=== PATIENT | female | born 1975 | race Caucasian/White ===

== ENCOUNTER 2020-03-18 13:43 | Emergency (ER) | payer BC ==
--- NOTE | 2020-03-18 14:50 | XRAY Report ---
PROCEDURE: Wrist 3 View RT INDICATIONS: trauma/fall TECHNIQUE: 3 views of the wrist were acquired. COMPARISON: None. FINDINGS: Bones: No fractures or dislocations. No suspicious bony lesions. Soft tissues: No suspicious soft tissue calcifications. IMPRESSION: Right wrist without acute fracture or dislocation. If there is persistent clinical concern for a radiographically occult fracture, recommend immobilizat ion and repeat imaging in 10 to 14 days. Reviewed by: Jose Machado MD on 03/18/2020 1:[address] [facility] Approved by: Jose Machado MD on 03/18/2020 1:[address] [facility] Station ID: [id number]
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
[2020-03-18 15:39] VITALS: BP 137/73
== END 2020-03-18 15:46 | disposition home or self-care (01) ==
LOC: ED 13:43
DX: S63.501A Unspecified sprain of right wrist, initial encounter (principal); Y04.2XXA Assault by strike against or bumped into by another person, initial encounter; Y92.000 Kitchen of unspecified non-institutional (private) residence as the place of occurrence of the external cause; T74.11XA Adult physical abuse, confirmed, initial encounter; Y07.01 Husband, perpetrator of maltreatment and neglect
CPT/HCPCS: 29125; 99283

== ENCOUNTER 2020-03-20 08:00 | Outpatient (CLI) | payer BC ==
[2020-03-20 18:35] LABS: BASOPHILS % (AUTO) 0.6 %; EOSINOPHILS % (AUTO) 0.3 %; HGB - HEMOGLOBIN 12.6 g/dL (12.0-16.0); LYMPHOCYTES # (AUTO) 1.8 10^3/uL (1.5-3.5); LYMPHOCYTES % (AUTO) 27.6 %; MEAN CORPUSCULAR HEMOGLOBIN 30.4 pg (27.0-31.0); MEAN CORPUSCULAR HGB CONC 32.3 g/dL (32.0-36.0); MEAN CORPUSCULAR VOLUME 94.2 fL (81.0-99.0); MEAN PLATELET VOLUME 9.7 fL (7.9-10.8); MONOCYTES # (AUTO) 0.5 10^3/uL (0.0-1.0); MONOCYTES % (AUTO) 8.2 %; NEUTROPHILS # (AUTO) 4.2 10^3/uL (1.5-6.6); PLT - PLATELET COUNT 336 10^3/uL (130-450); RED BLOOD COUNT 4.14 10^6/uL (4.20-5.40); RED CELL DISTRIBUTION WIDTH 13.1 % (12.0-15.0); WHITE BLOOD COUNT 6.6 x10^3/uL (4.8-10.8)
[2020-03-20 19:05] LABS: % IRON SATURATION 12 % (20-50); ALBUMIN 4.1 g/dL (3.2-5.5); ALBUMIN/GLOBULIN RATIO 1.4 (1.0-2.2); ALKALINE PHOSPHATASE 47 IU/L (42-121); ALT ALANINE AMINOTRANSFERASE 24 IU/L (10-60); AST ASPARTATE AMINOTRANSFERASE 20 IU/L (10-42); BILIRUBIN,TOTAL 0.7 mg/dL (0.2-1.0); BUN - BLOOD UREA NITROGEN 13 mg/dL (6-20); CALCIUM 9.2 mg/dL (8.5-10.3); CARBON DIOXIDE - CO2 23 mmol/L (21-32); CHLORIDE 107 mmol/L (101-111); CHOL/HDL RATIO 3.2 (<4.4); CHOLESTEROL 175 mg/dL; CREATININE 0.7 mg/dL (0.4-1.0); GLUCOSE 99 mg/dL (70-100); HDL CHOLESTEROL 54 mg/dL; IRON 49 ug/dL (28-170); LDL CHOLESTEROL,CALCULATED 112 mg/dL; LDL/HDL RATIO 2.1 (<4.4); SODIUM 138 mmol/L (135-145); TOTAL IRON BINDING CAPACITY 399 ug/dL (250-450); TOTAL PROTEIN 7.1 g/dL (6.7-8.2); TRANSFERRIN 285 mg/dL (192-382); VLDL CHOLESTEROL 9 mg/dL
[2020-03-20 19:14] LABS: FERRITIN 16.6 ng/mL (11.0-306.8)
== END 2020-03-20 23:59 | disposition home or self-care (01) ==
LOC: LAB.WCP 08:00
PROVIDERS: ATTEND Physician Assistant Medical
DX: Z00.00 Encounter for general adult medical examination without abnormal findings (principal); D64.9 Anemia, unspecified; J30.9 Allergic rhinitis, unspecified; L25.9 Unspecified contact dermatitis, unspecified cause; Z77.118 Contact with and (suspected) exposure to other environmental pollution
CPT/HCPCS: 36415; 80053; 80061; 82607; 82728; 83540; 83721; 84443; 84466; 85025

== ENCOUNTER 2020-11-03 04:51 | Outpatient (CLI) | payer OTHER | END 2020-11-03 04:52 | disposition home or self-care (01) | LOC: LAB 04:51 | PROVIDERS: ATTEND Pathology Blood Banking & Transfusion Medicine | DX: Z01.89 Encounter for other specified special examinations (principal) | CPT/HCPCS: 36415 ==

== ENCOUNTER 2020-12-08 15:04 | Emergency (ER) | payer BC ==
--- NOTE | 2020-12-08 15:39 | ED Physician Documentation ---
PD HPI UPPER EXT INJURY - Stated complaint Stated Complaint: RIGHT SHOULDER & ARM PX - Chief complaint Chief Complaint: Ext Problem - History obtained from History obtained from: Patient - Additonal information Additional information: This is a 45-year-old woman who is a vague and potentially slightly manic historian who presents with a chief complaint of right shoulder pain. She states she injured it 23 years ago but will not tell me how. It was reinjured 9 months ago. And "multiple reinjuries since then." She would like her shoulder checked out today. She would like an x-ray. 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 - Allergies Allergies/Adverse Reactions: Allergies Allergy/AdvReac Type Severity Reaction Status Date / Time amoxicillin Allergy Unknown Verified 12/08/20 15:10 pain meds AdvReac Unknown Uncoded 12/08/20 15:10 - Social History Does the pt smoke?: No Smoking Status: Never smoker Does the pt drink ETOH?: Yes Does the pt have substance abuse?: No - Immunizations Immunizations are current?: Yes - POLST Patient has POLST: No PD ED PE NORMAL - Vitals Vital signs reviewed: Yes - General General: No acute distress, Well developed/nourished, Other (Poor eye contact, pressured voice almost to the point of belligerence.) - Extremities Extremities: Other (Right shoulder is nontender, no rash, no limited range of motion.) Results - Vitals Vitals: Vital Signs - 24 hr 12/08/20 12/08/20 15:10 16:35 Temperature 36.5 C 36.6 C Heart Rate 84 62 Respiratory 16 16 Rate Blood Pressure 132/81 H 127/83 H O2 Saturation 98 100 Oxygen O2 Source Room air - Rads (name of study) Three-view right shoulder x-ray Radiology: EMP read contemporaneously (NAD, calcific tendinitis and DJD) Departure - Departure Disposition: 01 Home, Self Care Clinical Impression: Arthritis of right shoulder region Condition: Good Record reviewed to determine appropriate education?: Yes Instructions: Arthritis Acromioclavicular Follow-Up: [facility] [Provider Group] Comments: Tylenol or ibuprofen as needed for pain. Return for new or worsening symptoms. Try to range the joint and use it as normally as you can. Follow-up with orthopedics, call tomorrow for an appointment. Discharge Date/Time: 12/08/20 16:52
[2020-12-08] MEDS: ACETAMINOPHEN 325 MG TABLET PO STA ×2 (16:00→16:03)
[2020-12-08 16:52] VITALS: BP 127/83
--- NOTE | 2020-12-08 18:22 | XRAY Report ---
PROCEDURE: Shoulder 3 View RT INDICATIONS: shoulder inj TECHNIQUE: 3 views of the shoulder were acquired. COMPARISON: None. FINDINGS: Bones: No fractures or dislocations. No suspicious bony lesions. Visualized ribs appear intact. D egenerative changes are seen, including mild subacromial spurring. Soft tissues: Calcific tendinopathy can be seen. The visualized lung demonstrates a normal appearance . IMPRESSION: No acute abnormality is seen. Degenerative changes are seen, with calcific tendinopathy. If it would be helpful for clinical management decision making, please consider a dedicated, schedule d shoulder MRI for further evaluation (assuming that there is no contraindication). Reviewed by: Yang Ram MD on 12/08/2020 5:21 PM [facility] Approved by: Yang Ram MD on 12/08/2020 5:21 PM [facility] Station ID: [id number]
== END 2020-12-08 16:52 | disposition home or self-care (01) ==
LOC: ED 15:04
DX: M19.011 Primary osteoarthritis, right shoulder (principal)
CPT/HCPCS: 99283

== ENCOUNTER 2020-12-17 19:58 | Emergency (ER) | payer BC ==
[2020-12-17 20:14] VITALS: BP 114/69
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
== END 2020-12-17 21:03 | disposition left against medical advice (07) ==
LOC: ED 19:58
DX: F99 Mental disorder, not otherwise specified (principal); F22 Delusional disorders; F43.10 Post-traumatic stress disorder, unspecified; Z53.29 Procedure and treatment not carried out because of patient's decision for other reasons
CPT/HCPCS: 80053; 80307; 80320; 80329; 83690; 84443; 85025; 99281; 99283

== ENCOUNTER 2021-01-05 15:28 | Outpatient (CLI) | payer BC | END 2021-01-05 15:29 | disposition EMS.NT | LOC: EMS 15:28 | DX: Z04.1 Encounter for examination and observation following transport accident (principal) ==

== ENCOUNTER 2021-05-02 21:07 | Outpatient (CLI) | payer BC | END 2021-05-02 21:08 | disposition EMS.NT | LOC: EMS 21:07 | DX: Z03.89 Encounter for observation for other suspected diseases and conditions ruled out (principal) ==

== ENCOUNTER 2021-05-31 15:46 | Emergency (ER) | payer BC ==
[2021-05-31 16:02] VITALS: BP 137/90
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
[2021-05-31 16:40] LABS: MUDS CUTOFF CONCENTRATIONS CUTOFF CONC BELOW:
[2021-05-31 16:45] LABS: BILIRUBIN,URINE NEGATIVE (NEGATIVE); GLUCOSE, URINE (UA) NEGATIVE (NEGATIVE); KETONES,URINE (UA) TRACE mg/dL (NEGATIVE); LEUKOCYTE ESTERASE, URINE NEGATIVE (NEGATIVE); NITRITE,URINE NEGATIVE (NEGATIVE); OCCULT BLOOD,URINE LARGE (NEGATIVE); PROTEIN,URINE NEGATIVE (NEGATIVE); UROBILINOGEN,URINE 0.2 (NORMAL) E.U./dL (NORMAL)
[2021-05-31 16:48] LABS: CLARITY,URINE HAZY (CLEAR); HCG UR QUAL NEGATIVE
[2021-05-31 16:54] LABS: BACTERIA,URINE Few /HPF (None Seen); SQUAMOUS EPITHELIAL CELL,UR MANY Squamous (<= Few); WBC,URINE 0-3 /HPF (0-5)
[2021-05-31 16:55] LABS: AMPHETAMINE SCREEN,URINE NEGATIVE (NEGATIVE); BENZODIAZEPINES SCREEN, URINE NEGATIVE (NEGATIVE); METHAMPHETAMINES SCREEN, URINE NEGATIVE (NEGATIVE); OPIATE SCREEN, URINE NEGATIVE (NEGATIVE); THC CANNABINOID SCREEN, URINE NEGATIVE (NEGATIVE)
[2021-05-31 16:56] LABS: BARBITURATE SCREEN,UR NEGATIVE (NEGATIVE); COCAINE SCREEN URINE NEGATIVE (NEGATIVE); METHADONE SCREEN, URINE NEGATIVE (NEGATIVE); OXYCODONE SCREEN, URINE NEGATIVE (NEGATIVE); PROPOXYPHENE SCREEN, URINE NEGATIVE (NEGATIVE); TRICYCLIC ANTIDEPRESSANT,URINE NEGATIVE (NEGATIVE)
[2021-05-31 16:59] LABS: BASOPHILS % (AUTO) 0.5 %; EOSINOPHILS % (AUTO) 0.3 %; HCT - HEMATOCRIT 36.5 % (37.0-47.0); HGB - HEMOGLOBIN 12.2 g/dL (12.0-16.0); LYMPHOCYTES # (AUTO) 1.8 10^3/uL (1.5-3.5); LYMPHOCYTES % (AUTO) 23.7 %; MEAN CORPUSCULAR HEMOGLOBIN 30.3 pg (27.0-31.0); MEAN CORPUSCULAR HGB CONC 33.4 g/dL (32.0-36.0); MEAN CORPUSCULAR VOLUME 90.6 fL (81.0-99.0); MONOCYTES # (AUTO) 0.7 10^3/uL (0.0-1.0); MONOCYTES % (AUTO) 9.7 %; NEUTROPHILS # (AUTO) 4.9 10^3/uL (1.5-6.6); NEUTROPHILS % (AUTO) 65.4 %; PLT - PLATELET COUNT 318 10^3/uL (130-450); RED BLOOD COUNT 4.03 10^6/uL (4.20-5.40); RED CELL DISTRIBUTION WIDTH 13.1 % (12.0-15.0); WHITE BLOOD COUNT 7.6 x10^3/uL (4.8-10.8)
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
[2021-05-31 17:18] LABS: ACETAMINOPHEN < 10 ug/mL (10-30); ALBUMIN 3.9 g/dL (3.2-5.5); ALBUMIN/GLOBULIN RATIO 1.4 (1.0-2.2); ALKALINE PHOSPHATASE 46 IU/L (42-121); ALT ALANINE AMINOTRANSFERASE 21 IU/L (10-60); AST ASPARTATE AMINOTRANSFERASE 23 IU/L (10-42); BILIRUBIN,TOTAL 0.7 mg/dL (0.2-1.0); BUN - BLOOD UREA NITROGEN 13 mg/dL (6-20); CARBON DIOXIDE - CO2 24 mmol/L (21-32); CHLORIDE 104 mmol/L (101-111); CREATININE 0.6 mg/dL (0.4-1.0); ETOH - ETHANOL < 5.0 mg/dL; GFR - MDRD 107 (>89); GLUCOSE 91 mg/dL (70-100); LIPASE 44 U/L (22-51); POTASSIUM 3.7 mmol/L (3.5-5.0); SALICYLATE < 6.0 mg/dL; SODIUM 137 mmol/L (135-145); TOTAL PROTEIN 6.7 g/dL (6.7-8.2)
[2021-05-31 17:32] LABS: CORONAVIRUS 229E-RESP PCR NOT DETECTED; CORONAVIRUS HKU1-RESP PCR NOT DETECTED; CORONAVIRUS NL63-RESP PCR NOT DETECTED; CORONAVIRUS OC43-RESP PCR NOT DETECTED; HUMAN METAPNEUMOVIRUS NOT DETECTED; RHINOVIRUS/ENTEROVIRUS NOT DETECTED; SARS-CoV-2 -RESP PCR PANEL NOT DETECTED
[2021-05-31 17:33] LABS: B. PARAPERTUSSIS- RESP PCR PAN NOT DETECTED; B. PERTUSSIS- RESP PCR PANEL NOT DETECTED; C. PNEUMONIAE- RESP PCR PANEL NOT DETECTED; INFLUENZA A- RESP PCR PANEL NOT DETECTED; INFLUENZA B - RESP PCR PANEL NOT DETECTED; M. PNEUMONIAE- RESP PCR PANEL NOT DETECTED; PARAINFLUENZA VIRUS 1 NOT DETECTED; PARAINFLUENZA VIRUS 2 NOT DETECTED; PARAINFLUENZA VIRUS 3 NOT DETECTED; PARAINFLUENZA VIRUS 4 NOT DETECTED; RSV- RESP PCR PANEL NOT DETECTED
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
== END 2021-05-31 17:46 | disposition home or self-care (01) ==
LOC: ED 15:46
DX: S50.11XA Contusion of right forearm, initial encounter (principal); Y04.8XXA Assault by other bodily force, initial encounter; Y92.512 Supermarket, store or market as the place of occurrence of the external cause; M75.31 Calcific tendinitis of right shoulder; R31.9 Hematuria, unspecified; R45.4 Irritability and anger; F41.9 Anxiety disorder, unspecified; Z20.822 Contact with and (suspected) exposure to COVID-19
CPT/HCPCS: 0202U; 36415; 73030; 80053; 80306; 80307; 80320; 80329; 81001; 81025; 83690; 84443; 85025; 99282; 99284; 81003; 87086

== ENCOUNTER 2021-07-01 08:32 | Emergency (ER) | payer BC ==
[2021-07-01 08:46] VITALS: BP 133/76
--- NOTE | 2021-07-01 09:04 | ED Physician Documentation ---
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 She states that it is a form that allows her to continue to drive. She states she does not know why the form was sent to her. She states that she does not have a primary care provider any longer as she was fired from her primary care provider's office and escorted out by security. She states that the state does not have the right to tell her if she can drive or not. She states that she is her own provider and makes her own decisions about whether she can drive or not. She has no complaints currently. She states that she just needs the form filled out. The form was due on June 22 2021. Review of Systems Ten Systems: 10 systems reviewed and negative Constitutional: denies: Fever, Chills Respiratory: denies: Cough GI: denies: Vomiting, Diarrhea Skin: denies: Rash Musculoskeletal: denies: Neck pain, Back pain Neurologic: denies: Headache PD PAST MEDICAL HISTORY - Past Medical History Past Medical History: Yes Cardiovascular: None Respiratory: Asthma Neuro: None Endocrine/Autoimmune: None GI: None SENIOR MOBILE SOLUTIONS ARCHITECT: None : None HEENT: None Psych: Anxiety, Post traumatic stress disorder Musculoskeletal: None Derm: None - Past Surgical History Past Surgical History: Yes Ortho: Other /SENIOR MOBILE SOLUTIONS ARCHITECT: Tubal ligation - Present Medications Home Medications: Ambulatory Orders Medication Instructions Recorded Confirmed No Known Home Medications 07/01/21 07/01/21 - Allergies Allergies/Adverse Reactions: Allergies Allergy/AdvReac Type Severity Reaction Status Date / Time amoxicillin Allergy Unknown Verified 07/01/21 08:39 pain meds AdvReac Unknown Uncoded 05/31/21 16:02 - Social History Does the pt smoke?: No Smoking Status: Former smoker Does the pt drink ETOH?: Yes Does the pt have substance abuse?: No - Immunizations Immunizations are current?: Yes - POLST Patient has POLST: No PD ED PE NORMAL - Vitals Vital signs reviewed: Yes - General General: Alert and oriented X 3, No acute distress - HEENT HEENT: Moist mucous membranes - Respiratory Respiratory: No respiratory distress - Derm Derm: Warm and dry - Neuro Neuro: Alert and oriented X 3 Results - Vitals Vitals: Vital Signs - 24 hr 07/01/21 08:42 Temperature 36.4 C L Heart Rate 80 Respiratory 16 Rate Blood Pressure 133/76 H O2 Saturation 98 Oxygen O2 Source Room air PD MEDICAL DECISION MAKING - ED course Complexity details: considered differential, d/w patient ED course: There is no emergency medical condition at this time. The patient wants me to fill out a past due department of licensing form. I do not know anything about this patient's medical history and the patient just states "it is in my chart" when asked about her medical history. I am unable to evaluate her for fitness to drive. Therefore I recommend that she follow-up with her primary care provider who knows her better and can assess her ability to drive. Alternatively she could follow-up with a occupational medicine physician for further evaluation. Patient states that she is not going to be discharged and she will leave when she feels it is time for her to leave. This document was made in part using voice recognition software. While efforts are made to proofread this document, sound alike and grammatical errors may occur. Departure - Departure Disposition: 01 Home, Self Care Clinical Impression: Encounter for medical screening examination Condition: Good Instructions: ED Screening Exam Medical Nonurgent Follow-Up: your,doctor [Other] Comments: As we have discussed that form needs to be filled out by your primary care provider. Follow-up with them for that care.
== END 2021-07-01 09:10 | disposition home or self-care (01) ==
LOC: ED 08:32
DX: Z02.79 Encounter for issue of other medical certificate (principal); Z87.891 Personal history of nicotine dependence
CPT/HCPCS: 99281

== ENCOUNTER 2022-03-18 17:12 | Emergency (ER) | payer OTHER, BC ==
--- NOTE | 2022-03-18 17:14 | ED Physician Documentation ---
History of Present Illness - Stated complaint Stated Complaint: FIT - History obtained from History obtained from: Police - Additonal information Additional information: She presents accompanied by 's deputies from the skilled nursing. She has a bed at [facility] for her psychiatric disorder and they need "medical clearance." She is not cooperating and she declines any diagnostics here. Review of Systems Unable to obtain: Uncooperative PD PAST MEDICAL HISTORY - Past Medical History Cardiovascular: None Respiratory: Asthma Neuro: None Endocrine/Autoimmune: None GI: None ENDOSCOPE TECHNICIAN: None : None HEENT: None Psych: Anxiety, Post traumatic stress disorder Musculoskeletal: None Derm: None - Past Surgical History Past Surgical History: Yes Ortho: Other /ENDOSCOPE TECHNICIAN: Tubal ligation - Present Medications Home Medications: Ambulatory Orders Medication Instructions Recorded Confirmed No Known Home Medications 07/01/21 07/01/21 - Allergies Allergies/Adverse Reactions: Allergies Allergy/AdvReac Type Severity Reaction Status Date / Time amoxicillin Allergy Unknown Verified 07/01/21 08:39 pain meds AdvReac Unknown Uncoded 05/31/21 16:02 - Social History Does the pt smoke?: No Smoking Status: Former smoker Does the pt drink ETOH?: Yes Does the pt have substance abuse?: No - Immunizations Immunizations are current?: Yes - POLST Patient has POLST: No PD ED PE NORMAL - Vitals Vital signs reviewed: Yes - General General: Other (She is uncooperative and refusing to talk to me. I am able to ascertain that she responds "no" when I ask her if she is willing to have a blood draw and COVID test.) - Derm Derm: Normal color, Warm and dry - Psych Psych: Other (Intense mood and affect) Results - Vitals Vitals: Vital Signs - 24 hr 03/18/22 17:15 Temperature 36 C L Heart Rate 106 H Respiratory 24 Rate Blood Pressure 148/91 H O2 Saturation 99 Oxygen O2 Source Room air PD MEDICAL DECISION MAKING - ED course ED course: I spoke with the DCR who notes that this patient has been in skilled nursing since November. As such I do not think there is any need actually for labs for medical clearance as certainly she has not been getting any drugs there and she has proven herself to be medically stable in the last several months in skilled nursing. She is not agitated enough to sedate or restrain her. And she is refusing blood work and other diagnostics. The DCR spoke with her credit manager and then subsequently tried to have the patient transferred to [facility]. I discussed with her that there is no indication to transfer her to another ER for medical clearance and that I would not be doing that. In the interim [facility] was already spoken to, not by me, but I have no intention of sending her there. The DCR will try to get her accepted at [facility] without labs but is pessimistic. I asked the patient again around 6:30 PM if she would be willing to submit to labs. She is still responding in the negative. That said she is saying things that make sense such as "I want to talk to my analyst." As such I do not have any indication that she lacks capacity to make healthcare decisions and I still do not believe that it is my legal responsibility to force her to have labs, in fact this could be viewed as assault. I did notify the linux server administrator on-call, Ambrocio Watson. ARIELLA Vitale called me back and stated that [facility] would absolutely not accept her without screening labs. I recommended to the patient that she submit to screening labs for her safety and she is refused. As such we are signing her out AGAINST MEDICAL ADVICE. Departure - Departure Disposition: 07 Against Medical Advice Clinical Impression: Encounter for medical screening examination Condition: Stable Record reviewed to determine appropriate education?: Yes Comments: You did not allow us to do any diagnostics today. You are welcome to return anytime for further evaluation and treatment.
[2022-03-18 17:23] VITALS: BP 148/91
== END 2022-03-18 18:52 | disposition left against medical advice (07) ==
LOC: ED 17:12
DX: Z00.8 Encounter for other general examination (principal)
CPT/HCPCS: 99281

== ENCOUNTER 2022-08-13 18:52 | Outpatient (CLI) | payer BC | END 2022-08-13 23:59 | disposition critical access hospital (66) | LOC: EMS 18:52 | DX: Z04.6 Encounter for general psychiatric examination, requested by authority (principal) | CPT/HCPCS: A0425; A0429 ==

== ENCOUNTER 2022-08-13 18:56 | Emergency (ER) | payer BC ==
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
[2022-08-13 19:52] LABS: MUDS CUTOFF CONCENTRATIONS CUTOFF CONC BELOW:
[2022-08-13 19:54] LABS: BILIRUBIN,URINE NEGATIVE (NEGATIVE); GLUCOSE, URINE (UA) NEGATIVE (NEGATIVE); KETONES,URINE (UA) NEGATIVE (NEGATIVE); LEUKOCYTE ESTERASE, URINE TRACE (NEGATIVE); NITRITE,URINE NEGATIVE (NEGATIVE); OCCULT BLOOD,URINE NEGATIVE (NEGATIVE); PH,URINE 6.5 PH (5.0-7.5); PROTEIN,URINE NEGATIVE (NEGATIVE); UROBILINOGEN,URINE 0.2 (NORMAL) E.U./dL (NORMAL)
[2022-08-13 20:02] LABS: CLARITY,URINE HAZY (CLEAR)
[2022-08-13 20:03] LABS: BACTERIA,URINE Moderate /HPF (None Seen); MUCUS,URINE Moderate Strands; RBC,URINE 0-5 /HPF (0-5); SQUAMOUS EPITHELIAL CELL,UR MANY Squamous (<= Few)
[2022-08-13 20:05] LABS: AMPHETAMINE SCREEN,URINE NEGATIVE (NEGATIVE); BARBITURATE SCREEN,UR NEGATIVE (NEGATIVE); BENZODIAZEPINES SCREEN, URINE NEGATIVE (NEGATIVE); COCAINE SCREEN URINE NEGATIVE (NEGATIVE); METHADONE SCREEN, URINE NEGATIVE (NEGATIVE); METHAMPHETAMINES SCREEN, URINE NEGATIVE (NEGATIVE); OPIATE SCREEN, URINE NEGATIVE (NEGATIVE); OXYCODONE SCREEN, URINE NEGATIVE (NEGATIVE); PROPOXYPHENE SCREEN, URINE NEGATIVE (NEGATIVE); THC CANNABINOID SCREEN, URINE NEGATIVE (NEGATIVE); TRICYCLIC ANTIDEPRESSANT,URINE NEGATIVE (NEGATIVE)
[2022-08-13 20:11] LABS: BASOPHILS % (AUTO) 0.7 %; EOSINOPHILS # (AUTO) 0.1 10^3/uL (0.0-0.7); EOSINOPHILS % (AUTO) 1.2 %; HCT - HEMATOCRIT 37.3 % (37.0-47.0); HGB - HEMOGLOBIN 12.1 g/dL (12.0-16.0); LYMPHOCYTES % (AUTO) 32.5 %; MEAN CORPUSCULAR HEMOGLOBIN 30.3 pg (27.0-31.0); MEAN CORPUSCULAR HGB CONC 32.4 g/dL (32.0-36.0); MEAN CORPUSCULAR VOLUME 93.5 fL (81.0-99.0); MEAN PLATELET VOLUME 9.2 fL (7.9-10.8); MONOCYTES # (AUTO) 0.6 10^3/uL (0.0-1.0); MONOCYTES % (AUTO) 10.4 %; NEUTROPHILS # (AUTO) 3.3 10^3/uL (1.5-6.6); NEUTROPHILS % (AUTO) 54.9 %; PLT - PLATELET COUNT 256 10^3/uL (130-450); RED BLOOD COUNT 3.99 10^6/uL (4.20-5.40); RED CELL DISTRIBUTION WIDTH 13.2 % (12.0-15.0); WHITE BLOOD COUNT 6.1 x10^3/uL (4.8-10.8)
[2022-08-13 20:27] LABS: ACETAMINOPHEN < 10 ug/mL (10-30); ALBUMIN 3.6 g/dL (3.2-5.5); ALBUMIN/GLOBULIN RATIO 1.2 (1.0-2.2); ALKALINE PHOSPHATASE 37 IU/L (42-121); ALT ALANINE AMINOTRANSFERASE 10 IU/L (10-60); AST ASPARTATE AMINOTRANSFERASE 12 IU/L (10-42); BILIRUBIN,TOTAL 0.3 mg/dL (0.2-1.0); BUN - BLOOD UREA NITROGEN 13 mg/dL (6-20); CALCIUM 8.6 mg/dL (8.5-10.3); CARBON DIOXIDE - CO2 27 mmol/L (21-32); CHLORIDE 109 mmol/L (101-111); CREATININE 0.7 mg/dL (0.4-1.0); ETOH - ETHANOL < 5.0 mg/dL; GFR - MDRD 89 (>89); GLUCOSE 89 mg/dL (70-100); LIPASE 89 U/L (22-51); POTASSIUM 3.7 mmol/L (3.5-5.0); SALICYLATE < 6.0 mg/dL; SODIUM 139 mmol/L (135-145); TOTAL PROTEIN 6.5 g/dL (6.7-8.2)
[2022-08-13 23:23] LABS: HCG UR QUAL NEGATIVE
[2022-08-14 08:18] VITALS: BP 107/65
--- NOTE | 2022-08-14 09:14 | ED Physician Documentation ---
ED Addendum - Addendum Addendum: 08/14/22 09:11 The patient reportedly had a calm overnight and was doing well this morning. She was relaxed and ate breakfast. Unclear if she had received her usual medications. I can review the order sheets. At the time of [facility] ambulance arrival to take her involuntarily to the psychiatric facility, she then became reluctant to want to go. She was talking somewhat circular arguments about how its not her right. She was not physically goal and just sat on the floor and did not want to get into the cart. Ifeanyi Contreras was summoned and along with a couple of other officers, just this show of force without any need to medicate or touch her, she then got up from the floor got in the cart and allowed herself to be strapped in by the medics with a normal stretcher belts. She remained verbally stating she did not feel it was a all right but at this point is cooperating. Disposition: The patient is transferred to psychiatric facility Diagnosis: Acute exacerbation of schizoaffective disorder
== END 2022-08-14 09:11 ==
LOC: EDBD → EDUNIT# → ED 18:56
DX: F25.9 Schizoaffective disorder, unspecified (principal); Z87.891 Personal history of nicotine dependence; Z20.822 Contact with and (suspected) exposure to COVID-19
CPT/HCPCS: 36415; 80053; 80306; 80307; 80320; 80329; 81001; 81003; 81025; 83690; 84439; 84443; 85025; 87086; 99285

== ENCOUNTER 2023-01-22 08:48 | Outpatient (CLI) | payer BC ==
[2023-01-22 09:00] LABS: BASOPHILS # (AUTO) 0.1 10^3/uL (0.0-0.1); BASOPHILS % (AUTO) 0.8 %; EOSINOPHILS # (AUTO) 0.1 10^3/uL (0.0-0.7); EOSINOPHILS % (AUTO) 1.9 %; HGB - HEMOGLOBIN 15.1 g/dL (12.0-16.0); LYMPHOCYTES # (AUTO) 1.5 10^3/uL (1.5-3.5); LYMPHOCYTES % (AUTO) 25.9 %; MEAN CORPUSCULAR HEMOGLOBIN 31.1 pg (27.0-31.0); MEAN CORPUSCULAR HGB CONC 33.6 g/dL (32.0-36.0); MEAN CORPUSCULAR VOLUME 92.8 fL (81.0-99.0); MEAN PLATELET VOLUME 8.7 fL (7.9-10.8); MONOCYTES # (AUTO) 0.5 10^3/uL (0.0-1.0); MONOCYTES % (AUTO) 8.1 %; NEUTROPHILS # (AUTO) 3.7 10^3/uL (1.5-6.6); NEUTROPHILS % (AUTO) 62.8 %; PLT - PLATELET COUNT 274 10^3/uL (130-450); RED BLOOD COUNT 4.85 10^6/uL (4.20-5.40); RED CELL DISTRIBUTION WIDTH 12.1 % (12.0-15.0); WHITE BLOOD COUNT 5.9 x10^3/uL (4.8-10.8)
[2023-01-22 09:31] LABS: ALBUMIN 4.5 g/dL (3.2-5.5); ALBUMIN/GLOBULIN RATIO 1.6 (1.0-2.2); ALKALINE PHOSPHATASE 74 IU/L (42-121); ALT ALANINE AMINOTRANSFERASE 17 IU/L (10-60); AST ASPARTATE AMINOTRANSFERASE 13 IU/L (10-42); BILIRUBIN,TOTAL 0.6 mg/dL (0.2-1.0); BUN - BLOOD UREA NITROGEN 10 mg/dL (6-20); CARBON DIOXIDE - CO2 30 mmol/L (21-32); CHLORIDE 105 mmol/L (101-111); CHOL/HDL RATIO 4.2 (<4.4); CHOLESTEROL 241 mg/dL; CREATININE 0.8 mg/dL (0.6-1.3); GFR - MDRD 76 (>89); GLUCOSE 110 mg/dL (74-104); HDL CHOLESTEROL 58 mg/dL; LDL CHOLESTEROL,CALCULATED 154 mg/dL; LDL/HDL RATIO 2.7 (<4.4); POTASSIUM 4.1 mmol/L (3.5-4.5); SODIUM 139 mmol/L (135-145); TOTAL PROTEIN 7.4 g/dL (6.4-8.9); TRIGLYCERIDES 144 mg/dL (48-352); VLDL CHOLESTEROL 29 mg/dL
[2023-01-22 09:45] LABS: THYROID STIMULATING HORMONE 1.63 uIU/mL (0.34-5.60)
== END 2023-01-22 08:49 | disposition home or self-care (01) ==
LOC: LAB 08:48
PROVIDERS: ATTEND Family Medicine
DX: E03.9 Hypothyroidism, unspecified (principal); F43.10 Post-traumatic stress disorder, unspecified; N95.1 Menopausal and female climacteric states
CPT/HCPCS: 36415; 80053; 80061; 83001; 83002; 83721; 84443; 85025

== ENCOUNTER 2023-03-03 08:44 | Outpatient (CLI) | payer BC ==
--- NOTE | 2023-03-04 13:40 | Mammography Report ---
BILATERAL DIGITAL SCREENING MAMMOGRAM 3D/2D: 03/03/2023 CLINICAL: Routine screening. Comparison is made to exams dated: 06/05/2015 mammogram, 09/26/2014 mammogram, 09/18/2014 mammogram, 08/16 mammogram, and 03/21/2013 mammogram - [facility]. Both breasts are heterogeneously dense, which may obscure small masses (category c / 51-75% glandular tissue). There is a biopsy clip in the right breast. No significant masses, calcifications, or other findings are seen in either breast. There has been no significant interval change. IMPRESSION: NEGATIVE There is no mammographic evidence of malignancy. A 1 year screening mammogram is recommended. Based on the Tyrer Cuzick model (a risk assessment model) the patients lifetime risk is 9.6% and her 10 year risk is 2.1%. According to the ACR, ACS, and NCCN guidelines, an annual breast MRI exam angelica g with mammogram is recommended if the patients lifetime risk is 20% or greater. This exam was interpreted at Station ID: [id number]. NOTE: For mammograms, a report in lay terms will be sent to the patient. Approximately 15% of breast malignancies will not be visualized mammographically. In the management of a palpable breast mass, a negative mammogram must not discourage biopsy of a clinically suspicious lesion. Electronically Signed By: Jose reardon/huy:03/03/2023 11:06:54 letter sent: No_Letter ACR BI-RADS Category 1: Negative 3341F PARENCHYMAL PATTERN: (D) - The breast(s) demonstrate(s) heterogeneously dense fibroglandular sherrell juarez. BI-RADS CATEGORY: (1) - 1 Mammogram [id number] 1 year screening LATERALITY: (B)
== END 2023-03-03 08:45 | disposition home or self-care (01) ==
LOC: DI 08:44
DX: Z12.31 Encounter for screening mammogram for malignant neoplasm of breast (principal); R92.333 Mammographic heterogeneous density, bilateral breasts

== ENCOUNTER 2023-04-15 07:24 | Day surgery (SDC) | payer BC ==
[2023-04-15] MEDS ORDERED: PROPOFOL IV ONE (07:25)
[2023-04-15] MEDS ORDERED: LACTATED RINGERS 1,000 ML IV ONE (07:33)
--- NOTE | 2023-04-15 08:21 | ANESTHESIA ---
Pre-Anesthesia VS, & Labs - Diagnosis screening - Procedure colonoscopy Vital Signs: Temp Pulse Resp BP Pulse Ox O2 Flow Rate 36 C L 92 12 126/85 H 96 04/15/23 07:33 04/15/23 07:33 04/15/23 07:33 04/15/23 07:33 04/15/23 07:33 Height: 5 ft 3 in Weight (kg): 80.3 kg Body Mass Index: 31.4 BMI Classification: Obese - NPO >8 hours - Is Patient ?: No Home Medications and Allergies Home Medications: Ambulatory Orders Levothyroxine [Synthroid] 75 mcg PO QDAC 04/14/23 OLANZapine [Olanzapine] 20 mg PO DAILY 04/14/23 OLANZapine [Olanzapine] 30 mg PO DAILY PM 04/14/23 hydrOXYzine HCL [Hydroxyzine HCl] 50 mg PO BID PRN 04/14/23 traZODone [Desyrel] 50 mg PO HS PRN 04/14/23 Levothyroxine [Synthroid] 75 mcg PO QDAC 04/14/23 OLANZapine [Olanzapine] 20 mg PO DAILY 04/14/23 OLANZapine [Olanzapine] 30 mg PO DAILY PM 04/14/23 hydrOXYzine HCL [Hydroxyzine HCl] 50 mg PO BID PRN 04/14/23 traZODone [Desyrel] 50 mg PO HS PRN 04/14/23 Allergies/Adverse Reactions: Allergies Allergy/AdvReac Type Severity Reaction Status Date / Time amoxicillin Allergy Unknown Verified 04/15/23 07:26 pain meds AdvReac Unknown Uncoded 04/15/23 07:26 Anes History & Medical History - Anesthetic History Anesthesia Complications: reports: No previous complications - Medical History Cardiovascular: reports: Hypertension Pulmonary: reports: Asthma Gastrointestinal: reports: None Urinary: reports: None Neuro: reports: None Musculoskeletal: reports: None Endocrine/Autoimmune: reports: HyPOthyroidism Blood Disorders: reports: Anemia Skin: reports: None Smoking Status: Former smoker - Surgical History Gynecologic: reports: Tubal ligation Orthopedic: reports: Other Exam General: Alert, Oriented x3 Dental: WNL Mouth Opening: Greater than 4 Fingerbreadths Neck Mobility: Normal Mallampati classification: II Thyromental Distance: greater than 6 cm Respiratory: Lungs clear Cardiovascular: Regular rate, Normal S1, Normal S2 Plan Anesthesia Type: Total IV Consent for Procedure(s) Verified and Reviewed: Yes Code Status: Attempt Resuscitation ASA classification: 2-Mild systemic disease Is this case an emergency?: No
--- NOTE | 2023-04-15 08:33 | HISTORY & PHYSICAL EXAMINATION ---
Chief Complaint - Chief Complaint Chief Complaint: here for colonoscopy History of Present Illness - History Obtained From Records Reviewed: yes History obtained from: pt Exam Limitations: none - History of Present Illness HPI Comment/Other: here for colon cancer screening with colonoscopy. neg fhx first degree and no gi symptoms. History - Past Medical History Cardiovascular: reports: Hypertension Respiratory: reports: Asthma Neuro: reports: None Endocrine/Autoimmune: reports: HyPOthyroidism GI: reports: None JANITOR HELPER: reports: None : reports: None HEENT: reports: None Psych: reports: Anxiety, Post traumatic stress disorder Musculoskeletal: reports: None Derm: reports: None MRSA Hx?: No - Past Surgical History Ortho: reports: Other /JANITOR HELPER: reports: Tubal ligation - POLST Patient has POLST: No Meds/Allgy - Home Medications Home Medications: Ambulatory Orders Medication Instructions Recorded Confirmed Levothyroxine [Synthroid] 75 mcg PO QDAC 04/14/23 04/14/23 OLANZapine [Olanzapine] 20 mg PO DAILY 04/14/23 04/14/23 OLANZapine [Olanzapine] 30 mg PO DAILY PM 04/14/23 04/14/23 hydrOXYzine HCL [Hydroxyzine HCl] 50 mg PO BID PRN 04/14/23 04/14/23 traZODone [Desyrel] 50 mg PO HS PRN 04/14/23 04/14/23 - Allergies Allergies/Adverse Reactions: Allergies Allergy/AdvReac Type Severity Reaction Status Date / Time amoxicillin Allergy Unknown Verified 04/15/23 07:26 pain meds AdvReac Unknown Uncoded 04/15/23 07:26 Review of Systems - Other Findings Other Findings: 10 pt ros as above otherwise unremarkable Exam - Vital Signs Vital Signs: Vital Signs x48h Temp Pulse Resp BP Pulse Ox 04/15/23 07:33 36 C L 92 12 126/85 H 96 - Physical Exam General Appearance: positive: No acute distress, Alert Eyes Bilateral: positive: PERRL, EOMI ENT: positive: No signs of dehydration Neck: positive: No JVD Respiratory: positive: No respiratory distress Cardiovascular: positive: Regular rate & rhythm Abdomen: positive: No distention Neurologic/Psychiatric: positive: Oriented x3 Conclusion/Plan - Problem List (1) Colon cancer screening Conclusion/Plan: plan colonoscopy. parq held and consent obtained
[2023-04-15] MEDS ORDERED: LACTATED RINGERS 750 ML IV ONE (09:09)
[2023-04-15 09:31] VITALS: O2SAT 96
[2023-04-15 09:50] VITALS: BP 115/84
--- NOTE | 2023-04-15 10:39 | ANESTHESIA POST OP EVALUATION ---
Anesthesia Post Eval - Post Anesthesia Eval Vitals: Last Vital Signs Temp 36.0 C L 04/15/23 09:40 Pulse 78 04/15/23 09:40 Resp 12 04/15/23 09:40 BP 115/84 H 04/15/23 09:40 Pulse Ox 96 04/15/23 09:40 O2 Flow Rate CV Function Including HR & BP: Stable Pain Control: Satisfactory Nausea & Vomiting: Negative Mental Status: Baseline Respiratory Status: Airway Patent Hydration Status: Satisfactory Anesthesia Complications: None
== END 2023-04-15 07:25 | disposition home or self-care (01) ==
LOC: SDS 07:24
PROVIDERS: ATTEND Surgery
DX: Z12.11 Encounter for screening for malignant neoplasm of colon (principal); K57.30 Diverticulosis of large intestine without perforation or abscess without bleeding; E66.9 Obesity, unspecified; Z68.31 Body mass index [BMI] 31.0-31.9, adult; Z87.891 Personal history of nicotine dependence; I10 Essential (primary) hypertension; J45.909 Unspecified asthma, uncomplicated
CPT/HCPCS: 45378; J7120

== ENCOUNTER 2024-01-12 07:39 | Outpatient (CLI) | payer BC ==
[2024-01-12 07:47] LABS: BASOPHILS # (AUTO) 0.1 10^3/uL (0.0-0.1); BASOPHILS % (AUTO) 0.8 %; EOSINOPHILS # (AUTO) 0.1 10^3/uL (0.0-0.7); EOSINOPHILS % (AUTO) 2.3 %; HCT - HEMATOCRIT 46.2 % (37.0-47.0); HGB - HEMOGLOBIN 15.5 g/dL (12.0-16.0); LYMPHOCYTES # (AUTO) 2.4 10^3/uL (1.5-3.5); LYMPHOCYTES % (AUTO) 40.1 %; MEAN CORPUSCULAR HEMOGLOBIN 31.1 pg (27.0-31.0); MEAN CORPUSCULAR HGB CONC 33.5 g/dL (32.0-36.0); MEAN CORPUSCULAR VOLUME 92.6 fL (81.0-99.0); MEAN PLATELET VOLUME 8.7 fL (7.9-10.8); MONOCYTES # (AUTO) 0.5 10^3/uL (0.0-1.0); MONOCYTES % (AUTO) 9.1 %; NEUTROPHILS # (AUTO) 2.8 10^3/uL (1.5-6.6); NEUTROPHILS % (AUTO) 47.4 %; PLT - PLATELET COUNT 320 10^3/uL (130-450); RED BLOOD COUNT 4.99 10^6/uL (4.20-5.40); RED CELL DISTRIBUTION WIDTH 11.5 % (12.0-15.0)
[2024-01-12 08:03] LABS: ALBUMIN 4.4 g/dL (3.2-5.5); ALBUMIN/GLOBULIN RATIO 1.5 (1.0-2.2); ALKALINE PHOSPHATASE 86 IU/L (42-121); ALT ALANINE AMINOTRANSFERASE 15 IU/L (10-60); AST ASPARTATE AMINOTRANSFERASE 13 IU/L (10-42); BILIRUBIN,TOTAL 0.5 mg/dL (0.2-1.0); BUN - BLOOD UREA NITROGEN 14 mg/dL (6-20); CALCIUM 9.6 mg/dL (8.5-10.3); CARBON DIOXIDE - CO2 28 mmol/L (21-32); CHLORIDE 106 mmol/L (101-111); CHOL/HDL RATIO 4.7 (<4.4); CHOLESTEROL 221 mg/dL; CREATININE 0.8 mg/dL (0.6-1.3); GFR - MDRD 76 (>89); GLUCOSE 112 mg/dL (74-104); HDL CHOLESTEROL 47 mg/dL; LDL CHOLESTEROL,CALCULATED 142 mg/dL; POTASSIUM 3.8 mmol/L (3.5-4.5); SODIUM 139 mmol/L (135-145); TOTAL PROTEIN 7.3 g/dL (6.4-8.9); TRIGLYCERIDES 160 mg/dL; VLDL CHOLESTEROL 32 mg/dL
[2024-01-12 08:16] LABS: THYROID STIMULATING HORMONE 0.89 uIU/mL (0.34-5.60)
[2024-01-12 08:33] LABS: ESTIMATED AVERAGE GLUCOSE 91 mg/dL (70-100); HEMOGLOBIN A1c% 4.8 % (4.27-6.07)
== END 2024-01-12 07:40 | disposition home or self-care (01) ==
LOC: LAB 07:39
PROVIDERS: ATTEND Family Medicine
DX: E03.9 Hypothyroidism, unspecified (principal); R03.0 Elevated blood-pressure reading, without diagnosis of hypertension; G47.9 Sleep disorder, unspecified; F20.9 Schizophrenia, unspecified; R73.9 Hyperglycemia, unspecified
CPT/HCPCS: 36415; 80053; 80061; 83036; 83721; 84443; 85025